=== PATIENT | male | born 1990 | race African-American/Black ===

== ENCOUNTER 2020-04-27 13:14 | Emergency (ER) | payer MEDICAID, OTHER ==
[~2020-04-27] VITALS: Ht 180.3 cm; Wt 68.0 kg
[2020-04-27 14:30] VITALS: BP 132/73
[2020-04-27] MEDS ORDERED: Methocarbamol 750mg tab ORAL ONE (14:45)
[2020-04-27] MEDS ORDERED: Acetaminophen 500mg (ES) tab ORAL ONE (14:45)
--- NOTE | 2020-04-27 15:29 | Diagnostic Imaging Report ---
EXAM: XR Left Knee, 1 or 2 Views CLINICAL HISTORY: PAIN TECHNIQUE: Frontal and/or lateral views of the left knee. COMPARISON: None FINDINGS: Bones/joints: No displaced fracture or dislocation identified. Joint space is maintained. No bony lesion. No knee joint effusion. Soft tissues: Normal. IMPRESSION: No displaced fracture or dislocation identified.
--- NOTE | 2020-04-27 15:31 | Diagnostic Imaging Report ---
EXAM: XR Right Hand Complete, 3 or More Views CLINICAL HISTORY: PAIN TECHNIQUE: Frontal, lateral and oblique views of the right hand. COMPARISON: None FINDINGS: Bones/joints: No displaced fracture or dislocation identified. Joint space is maintained. No bony lesion. Probable old fracture deformity of the right fifth metacarpal. Soft tissues: Normal. IMPRESSION: No displaced fracture or dislocation identified.
--- NOTE | 2020-04-27 15:32 | Diagnostic Imaging Report ---
EXAM: XR Right Wrist, 2 Views CLINICAL HISTORY: PAIN TECHNIQUE: Frontal and lateral views of the right wrist. COMPARISON: None FINDINGS: Bones/joints: No displaced fracture or dislocation identified. Joint space is maintained. No bony lesion. Soft tissues: Normal. IMPRESSION: No displaced fracture or dislocation identified.
--- NOTE | 2020-04-27 15:40 | Diagnostic Imaging Report ---
EXAM: CT Head Without Intravenous Contrast CLINICAL HISTORY: FALL TECHNIQUE: Axial computed tomography images of the head/brain without intravenous contrast. CTDI is 53.4 mGy and DLP is 1179.1 mGy-cm. One or more of the following dose reduction techniques were used: automated exposure control, adjustment of the mA and/or kV according to patient size, use of iterative reconstruction technique. COMPARISON: None FINDINGS: Brain: No acute infarct or hemorrhage. No extra-axial fluid collection. No mass effect or midline shift. Ventricles and sulci: Normal. No ventriculomegaly or intraventricular hemorrhage. Bones: Normal. No bony lesion or acute fracture. Subcutaneous tissues: Normal. Sinuses: Normal. No air-fluid levels or mucosal thickening. Mastoid air cells: Normal. Orbits: Grossly unremarkable. IMPRESSION: No acute intracranial abnormality.
[2020-04-27] MEDS ORDERED: NAPROXEN500 M1 ORAL (16:05)
[2020-04-27] MEDS ORDERED: ROBAXIN-750750 MG PO (16:05)
--- NOTE | 2020-04-27 16:05 | Emergency Room Report ---
History of Present Illness General Chief Complaint: General Complaint Source: Patient Present Illness HPI 21-year-old [id number] male presents with multiple complaints after falling from monkey bars prior to arrival. Patient states he was hanging upside down and slipped. His weight primarily landed on the right side of his head, right hand, and left knee. Patient was ambulatory after the fall. Denies vision changes, nausea, vomiting, neck pain, back pain, pelvic pain, chest pain, abdominal pain, melena, hematochezia, shortness of breath or any other issue. Denies LOC. Tdap is up-to-date. Patient is right-hand dominant. 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 Quality: Aching Past medical history: Denies Past surgical history: Denies Smoking: ++ Alcohol use: Denies Drug use: ++ Review of systems: CONST: No fevers or chills, No night sweats PULMONARY: No productive cough, No shortness of breath CARDIAC: No chest pain, No palpitations GI: No vomiting, No diarrhea , No melena_or_BRBPR : No dysuria, No hematuria, No discharge NEURO: No new_focal_weakness_or_numbness, No confusion, No vision changes 14 point Review of Systems is otherwise negative except per HPI Physical Exam: GENERAL: Awake_alert_ nontoxic, no acute distress Spo2 98% on RA -normal EYES: Extraocular muscles are intact. Conjunctivae clear. Lids without swelling. No periorbital ecchymosis. No nystagmus. ENT: No nasal septal hematoma. External nose and ear normal_in_appearance. Oropharynx clear. Head_atraumatic, Moist_oral_mucosa NECK: No JVD. No meningismus. No thyromegaly. Supple. Trachea midline. No midline cervical, thoracic, lumbar spinal step-off or tenderness to palpation RESP: No chest wall crepitus. Normal respiratory effort. Symmetric rise. No stridor. Clear_to_auscultation_No_rales_No_wheezes CARDIAC: Regular rate and regular rhytm. No_significant pedal edema. ABDOMEN: Soft. Nondistended. Nontender_No_rebound_or_guarding. No pelvic instability MSK: Normal muscle tone, without rigidity. Upper extremity exam: Right Elbow: No swelling / effusion appreciated, no significant pain with passive range of motion Wrist: No swelling / effusion appreciated, no significant pain with passive range of motion Lateral epicondyle: no tenderness / swelling / ecchymoses Medial epicondyle: no tenderness / swelling / ecchymoses Radial pulse: 2+ Capillary refill: <3 seconds in all fingers All fingers: full range of motion without any tenderness / swelling / deformity / evidence of infection Scaphoid: no tenderness / swelling / ecchymoses, no pain with axial loading of the thumb Radian / Median / Ulnar nerves: all intact (finger opposition, finger adduction / abduction, thumb dorsiflexion) Sensation intact to light touch: in all fingers Strength 5/5 with: wrist dorsi / volar flexion, 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 No gross deformity or hemarthrosis. No swelling / effusion appreciated, No significant pain with passive range of motion Lateral malleolus: no tenderness / swelling / ecchymoses Medial malleolus: no tenderness / swelling / ecchymoses Dorsalis pedis pulse: 2+ Capillary refill: <3 seconds in all toes All toes: full range of motion without any tenderness / swelling / deformity / evidence of infection Base of the fifth metatarsal: no tenderness / swelling / ecchymoses Navicular: no tenderness / swelling / ecchymoses Calcaneus: no tenderness / swelling / ecchymoses Arch of the foot: no tenderness / swelling / ecchymoses Midfoot: no tenderness / swelling / ecchymoses Strength of dorsal / plantar flexion: normal 5/5 SKIN: Warm and dry. No visible cyanosis or pallor NEUROLOGIC: Alert, oriented x3. Motor_and_sensation_grossly_intact. No truncal ataxia. Gait_normal Psych: Normal mood and affect, normal judgment and insight - COORDINATION OF CARE Case was discussed with: Patient Any labs and imaging that were ordered were interpreted as part of the medical decision making: Medical Decision Making/Plan: Differential diagnosis includes closed head injury, scalp contusion, neck musc le spasm / strain, vs less likely skull fracture, intracranial bleeding, vertebral fracture, spinal cord compression / injury, among others. Given the patients significant mechanism, CT scans of the head were immediately obtained and showed no evidence of any emergent findings. Plain film showed closed right fifth metacarpal fracture. Radiographically looks chronic, however patient is having pain over the site therefore ulnar gutter splint was ordered. There was no evidence of any wounds that required repair X-rays of the left knee were unremarkable. Due to history of trauma cannot rule out hairline fracture, therefore Guzman wrap and crutches were ordered. Unfortunately, the patient eloped from the emergency department prior to completion of full work-up. 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 Past Medical History: No History, Except For History Of Psychiatric Problem: Yes - anxiety Physical Exam Vital Signs Date Time Temp Pulse Resp B/P (MAP) Pulse Ox O2 Delivery O2 Flow Rate FiO2 04/27/20 14:11 97.7 90 18 132/73 (92) 98 Room Air Sp02 EP Interpretation: reviewed, normal Medical Decision Making Diagnostic Impression: Primary Impression: Closed head injury Additional Impressions: Hand pain, right Closed fracture of 5th metacarpal Left knee pain Fall Other X-Ray Diagnostic Results Other X-Ray Diagnostic Results : PA Scribe Text Right wrist X-ray: Views: 2 view(s) No fracture. Normal alignment. Soft tissues normal. Joint spaces normal. Indication: Pain Impression: no acute disease The X-ray(s) were independently viewed and interpreted contemporaneously - Electronically signed by Raven quinones DO Right hand X-ray: Views: 3 view(s) Fifth metacarpal fracture. Normal alignment. Soft tissues normal. Joint spaces normal. Indication: Pain Impression: Closed fifth metacarpal fracture The X-ray(s) were independently viewed and interpreted contemporaneously - Elec tronically signed by Raven quinones DO CT/MRI/US Diagnostic Results CT/MRI/US Diagnostic Results : Impression CT Head Without Intravenous Contrast IMPRESSION: No acute intracranial abnormality. Dictated By: Elsie Givens MD Reevaluation Time: 16:02 Last Vital Signs Date Time Temp Pulse Resp B/P (MAP) Pulse Ox O2 Delivery O2 Flow Rate FiO2 04/27/20 14:30 97.7 18 132/73 98 Room Air 04/27/20 14:30 90 Status: improved Disposition: ELOPED Admit Decision Time: 16:02 Condition: Stable Scripts Methocarbamol* (ROBAXIN-750*) 750 Mg Tablet 750 MG PO TID, #21 TAB 0 Refills Prov: Raven Brunson D.O. 04/27/20 Naproxen* (NAPROXEN*) 500 Mg Tablet.dr 500 MG ORAL TWICE A DAY for 10 Days, #20 TAB Prov: Raven Brunson D.O. 04/27/20 Referrals: [facility],REFERRING (PCP) Patient Instructions: Cast or Splint Care, [id number], Knee Pain, [id number], Metacarpal Fracture, [id number] Additional Instructions: Raven Azul D.O. Apr 27, 2020 16:05
--- NOTE | 2020-04-27 16:26 | NUR ---
patient eloped before receiving splint
== END 2020-04-27 16:00 | disposition home or self-care (01) ==
LOC: EMR 14:42
DX: S09.90XA Unspecified injury of head, initial encounter (principal); S62.306A Unspecified fracture of fifth metacarpal bone, right hand, initial encounter for closed fracture; M25.562 Pain in left knee; M25.541 Pain in joints of right hand; W17.89XA Other fall from one level to another, initial encounter; Y92.9 Unspecified place or not applicable; F41.9 Anxiety disorder, unspecified
CPT/HCPCS: 70450; 73110; 73120; 73560; Z7502; 99284